=== PATIENT | female | born 1985 | race Caucasian/White ===

== ENCOUNTER → 2016-07-27 | Outpatient (CLI) | payer OTHER ==
[~2016-07-27] MED LIST: PRENAT PO
[2016-07-27 10:12] LABS: AADO2 Arterial 3.6 mmHg (7.0-24.0); Allen Test ACCEPTAB; Arterial Base Excess -0.1 mmol/L (-3.0-3); Arterial COHb 0.3 % (0.0-3.0); Arterial Fraction of Oxyhgb 97.4 % (93.0-99.0); Arterial HCO3 23.3 mmol/L (22.0-26.0); Arterial MetHb 0.3 % (0.0-1.5); Arterial Total Hemglobin 14.4 g/dl (12.0-18.0); MODE ROOM AIR
== END | disposition home or self-care (01) ==
LOC: PUL 09:48
PROVIDERS: ATTEND Internal Medicine Pulmonary Disease
DX: Z01.818 Encounter for other preprocedural examination (principal)
CPT/HCPCS: 36600; 82803

== ENCOUNTER 2016-09-22 11:10 | Emergency (ER) | payer OTHER ==
[~2016-09-22] VITALS: Ht 170.2 cm; Wt 120.0 kg
[2016-09-22 11:11] VITALS: Ht 170.2 cm; Wt 120.0 kg
--- NOTE | 2016-09-22 13:08 | RADRPT ---
PROCEDURE: US Lower extremity Venous. CLINICAL INDICATION: Left leg edema, pain TECHNIQUE: Multiple sonographic images of the left lower extremity deep venous system was obtained utilizing grayscale, color-flow, compressive sonography and doppler imaging with augmentation. The images were reviewed on a PACS workstation. COMPARISON: 10/29/14 FINDINGS: There is normal compressibility and flow within the left common femoral, femoral, posterior tibial, peroneal and popliteal veins. RPTAT: AA IMPRESSION: No sonographic evidence for deep venous thrombosis. .Shane Weiss MD, MD Date Time Electronically viewed and signed by .Shane Weiss MD, on 09/22/2016 13:07 .S/
[2016-09-22] MEDS ORDERED: IBUP-1542 PO (13:24)
--- NOTE | 2016-09-22 13:28 | ERD ---
ER Documentation Chief Complaint Date/Time DATE: 09/22/16 TIME: 13:24 Chief Complaint LEFT LEG PAIN RADIATES TO CALF X 3 MONTHS HPI Patient is a 31-year-old female who presents to the ED with left calf pain 3 months. Patient states that she had left big toe surgery approximately 4 months ago. Patient was put in a cast and immobilized for approximately 2 months. Patient states she had the cast removed on 08-05-16. Patient states that she has left calf pain which is throbbing in nature. Patient states that the pain is worse with ambulating. Patient denies any unilateral leg swelling. Patient denies any fevers, chills, chest pain, shortness of breath, nausea, vomiting, redness, swelling or warmth. Patient denies any recent falls or trauma. Patient was advised to come to the ED by her foot surgeon to rule out any DVT. Patient denies any OCP use, recent travel. ROS All systems reviewed and are negative except as per history of present illness. Medications Home Meds Active Scripts Ibuprofen* (Motrin*) 600 Mg Tab, 600 MG PO Q6, #30 TAB Prov:FREDDY ADDISON PA-C 09/22/16 Reported Medications Multivit/Min/Fol Ac/Iron/Pren* ( S*) 1 Tab Tab, 1 TAB PO DAILY, TAB 10/21/14 Allergies Allergies: Coded Allergies: Penicillins (Unverified Allergy, Unknown, 10/23/14) UNKNOWN REACTION, FROM CHILDHOOD PMhx/Soc Medical and Surgical Hx: pt denies Medical Hx Hx Miscellaneous Medical Probl: Yes (obesity) Hx Alcohol Use: No Hx Substance Use: No Hx Tobacco Use: No Physical Exam Vitals Vital Signs Date Time Temp Pulse Resp B/P Pulse Ox O2 Delivery O2 Flow Rate FiO2 09/22/16 11:11 98.0 89 18 175/70 100 Physical Exam GENERAL: Well-developed, well-nourished female. Appears in no acute distress. HEAD: Normocephalic, atraumatic. EYES: Pupils are equally reactive bilaterally. EOMs grossly intact. No conjunctival erythema. ENT: Moist mucous membranes. No uvula deviation. No kissing tonsils. NECK: Supple. No meningismus. Normal range of motion of the neck. LUNG: Clear to auscultation bilaterally. No rhonchi, wheezing, rales or coarse breath sounds. HEART: Regular rate and rhythm. No murmurs, rubs or gallops. EXTREMITIES: Equal pulses bilaterally. No peripheral clubbing, cyanosis or edema. No unilateral leg swelling. NEUROLOGIC: Alert and oriented. Moving all four extremities without any difficulty. Normal speech. Steady gait. SKIN: Normal color. Warm and dry. No rashes or lesions. LEFT LE: No deformity, warmth, erythema, ecchymosis or swelling. Skin intact. Full range of motion of the knee and ankle. Tender to palpation of the calf. Pain elicited with dorsiflexion of the foot. Sensation intact to light touch. Neurovascularly intact. (Able to plantarflex, dorsiflex, nicole foot, invert foot , raise big toe.) 2+ DP and DT pulses. Procedures/MDM ED COURSE: The patient was stable throughout ED course. I kept the patient and/or family informed of laboratory and diagnostic imaging results throughout the ED course. DIAGNOSTIC IMAGING: Read by radiologist. Patient Name Keya Disla Study Date 09/22/2016 12:45 PM Patient 1985 Accession No. [id number] Referring Physician Freddy Addison Pa-c ([place]) PROCEDURE: US Lower extremity Venous. CLINICAL INDICATION: Left leg edema, pain TECHNIQUE: Multiple sonographic images of the left lower extremity deep venous system was obtained utilizing grayscale, color-flow, compressive sonography and doppler imaging with augmentation. The images were reviewed on a PACS workstation. COMPARISON: 10/29/14 FINDINGS: There is normal compressibility and flow within the left common femoral, femoral , posterior tibial, peroneal and popliteal veins. RPTAT: AA IMPRESSION: No sonographic evidence for deep venous thrombosis. Signed By: Shane Weiss M.d 09/22/2016 1:07:56 PM PROCEDURES: None. MEDICAL DECISION MAKING: This is a 31-year-old female who presents with left calf pain comes 3 months. Patient had a surgical repair of her left big toe approximately 5 months ago. She was referred to the ED for a DVT study. Vital signs were reviewed. Patient was afebrile. Patient was not hypoxic. Patient was not tachycardic. Doppler study of the left lower extremity showed no sonographic evidence of deep venous thrombosis. Given these findings, the patient's presentation is most consistent with left calf pain. I have a much lower clinical concern for dislocation, fracture, cellulitis, abscess, DVT. PRESCRIPTIONS: Ibuprofen DISCHARGE: At this time, patient is stable for discharge and outpatient management. RICE therapy and ROM exercises were advised to avoid stiffness. I have instructed the patient to follow-up with his/her primary care physician in 1-2 days. I have discussed with the patient the possibility of needing to see an field support specialist for further workup and imaging if the pain persists. I have instructed the patient to promptly return to the ER for any new or worsening symptoms including increased pain, swelling, redness, warmth or fever. The patient and/or family expressed understanding of and agreement with this plan. All questions were answered. Home care instructions were provided. Patient's blood pressure was elevated (>120/80) but appears stable without evidence of hypertensive emergency, hypertensive urgency or end-organ failure. I had discussion with the patient about the risks of hypertension. I have advised the patient to follow up with his/her primary care physician for outpatient monitoring and treatment for hypertension in 2-3 days. I have instructed the patient to return to the ER for any new or worsening symptoms including chest pain, shortness of breath, headache, blurred vision, confusion, nausea, vomiting or LOC. Departure Diagnosis: Primary Impression: Calf pain Laterality: left Qualified Code: M79.662 - Pain of left calf Condition: Stable Patient Instructions: Possible Causes of Low Back or Leg Pain Additional Instructions: Call your primary care doctor TOMORROW for an appointment during the next 1-2 days.See the doctor sooner or return here if your condition worsens before your appointment time. FREDDY ADDISON PA-C September 22, 2016 13:28
== END 2016-09-22 13:43 | disposition home or self-care (01) ==
LOC: FTE 11:10
DX: M79.662 Pain in left lower leg (principal); E66.9 Obesity, unspecified; Z68.41 Body mass index [BMI] 40.0-44.9, adult
CPT/HCPCS: 93971; Z7502

== ENCOUNTER 2017-01-14 11:27 | Emergency (ER) | payer OTHER ==
[~2017-01-14] VITALS: Wt 110.0 kg
[~2017-01-14 11:27] MED LIST changes: +IBUP-1542 PO
[2017-01-14] MEDS ORDERED: KETOROLAC 30 MG INJ IM STA (13:12)
--- NOTE | 2017-01-14 13:16 | RADRPT ---
PROCEDURE: Chest xray. CLINICAL INDICATION: Cough, chest pressure. TECHNIQUE: A portable semiupright AP view of the chest was obtained. COMPARISON: None. FINDINGS: The cardiomediastinal silhouette is within normal limits. The lungs are well expanded and show norm al vascularity. No focal opacity, pleural effusion, or pneumothorax is identified. The skeletal st ructures and soft tissues are unremarkable. IMPRESSION: No acute intrathoracic abnormality. RPTAT:PP .Dianelys Jay MD, MD Date Time Electronically viewed and signed by .Dianelys Jay MD, MD on 01/14/2017 13:15 .K/
[2017-01-14] MEDS ORDERED: ALBUTEROL 0.083% (NEB) 2.5 MG/3 ML AMP HHN STA (14:19)
[2017-01-14] MEDS ORDERED: predniSONE 20 MG TAB PO ONE (14:30)
[2017-01-14] MEDS ORDERED: ALBUTEROL 0.5% (NEB) 2.5 MG/0.5 ML AMP INH STA ×2 (14:46→14:47)
--- NOTE | 2017-01-16 14:56 | ERD ---
ER Documentation Chief Complaint Date/Time DATE: 01/16/17 TIME: 14:51 Chief Complaint CHEST CONGESTION X 3 DAYS HPI This is a 31-year-old female presenting to emergency department with cough and chest congestion 3 days. Patient states she has chest tightness that is worse with coughing. No heart palpitations. No wheezing, shortness breath or difficulty breathing. No fevers or chills. ROS All systems reviewed and are negative except as per history of present illness. Medications Home Meds Active Scripts Ibuprofen* (Motrin*) 600 Mg Tab, 600 MG PO Q6, #30 TAB Prov:FREDDY ADDISON PA-C 09/22/16 Reported Medications Multivit/Min/Fol Ac/Iron/Pren* ( S*) 1 Tab Tab, 1 TAB PO DAILY, TAB 10/21/14 Allergies Allergies: Coded Allergies: Penicillins (Unverified Allergy, Unknown, 10/23/14) UNKNOWN REACTION, FROM CHILDHOOD PMhx/Soc Hx Miscellaneous Medical Probl: Yes (obesity) Hx Alcohol Use: No Hx Substance Use: No Hx Tobacco Use: No Smoking Status: Never smoker Physical Exam Vitals Vital Signs Date Time Temp Pulse Resp B/P Pulse Ox O2 Delivery O2 Flow Rate FiO2 01/14/17 14:57 88 18 98 21 01/14/17 14:37 88 19 98 21 01/14/17 11:30 98.0 72 18 141/71 99 Physical Exam Const: alert, no acute distress Head: Atraumatic Eyes: Normal Conjunctiva ENT: Normal External Ears, Nose and Mouth.TMs normal bilaterally. No erythema or exudate posterior pharynx. No peritonsillar abscess. Non-kissing tonsils appear Neck: Full range of motion..~ No meningismus. Resp: Clear to auscultation bilaterally. no wheezing, rhonchi or crackles. No stridor or labored breathing. No intercostal retractions. Cardio: Regular rate and rhythm, no murmurs Abd: Soft, non tender, non distended. Normal bowel sounds Skin: No petechiae or rashes Back: No midline or flank tenderness Ext: No cyanosis, or edema Neur: Awake and alert Psych: Normal Mood and Affect Results 24 hrs Current Medications Medications (Trade) Dose Ordered Sig/Tim Route PRN Reason Start Time Stop Time Status Last Admin Dose Admin Ketorolac Tromethamine (Toradol) 30 mg ONCE STAT IM 01/14/17 13:12 01/14/17 13:14 DC 01/14/17 13:24 Albuterol (Proventil 0.083% (Neb)) 5 mg ONCE STAT HHN 01/14/17 14:19 01/14/17 14:20 DC 01/14/17 14:36 Prednisone (Prednisone) 60 mg ONCE ONCE PO 01/14/17 14:30 01/14/17 14:31 DC 01/14/17 14:27 Albuterol (Proventil 0.5% (Neb)) 5 mg ONCE STAT INH 01/14/17 14:46 01/14/17 14:48 DC Albuterol (Proventil 0.5% (Neb)) 10 mg ONCE STAT INH 01/14/17 14:47 01/14/17 14:48 DC 01/14/17 14:55 Procedures/MDM EKG: As interpreted by myself and Dr. Lou Rate/Rhythm: Normal Sinus RhythmWith sinus arrhythmia and heart rate 97 bpm QRS, ST, T-waves: No changes consistent w/ acute ischemia Impression: No evidence of ischemia or arrhythmia MDM: This is a 31-year-old female presenting to emergency department with cough and chest congestion 3 days. Patient states she has chest wall pain with coughing. Chest x-ray reviewed by radiologist is unremarkable. EKG shows normal sinus rhythm with sinus arrhythmia and heart rate 97 bpm.Patient given 2 albuterol nebulizer treatments, prednisone 60 mg p.o. and Toradol 30 mg IM. Upon reassessment, patient states cough is improved. Patient states she is breathing better. No signs or symptoms of respiratory distress. Oxygen saturation remains 99% on room air. Remains afebrile. Vital signs are stable. Patient appears alert and stable for discharge. Chest wall pain is likely pleuritic. Patient has reproducible chest wall pain with palpation. Likely not from cardiac etiology. Low suspicion for pneumonia, pleural effusion, pneumothorax or acute PR. Differential diagnosis includes but not limited to URI, influenza, otitis media , otitis externa, asthma exacerbation, croup, bronchitis, bronchiolitis and costochondritis. Patient is appropriate for outpatient management and will be given prescription for ibuprofen and prednisone. Instructed patient to follow-up with primary care provider in the next 2-3 days for reassessment and additional management. Return to ED for any high fever, chest pain, difficulty breathing, shortness breath, wheezing, vomiting, diarrhea, abdominal pain or any new or worsening symptoms. Patient verbalizes understanding. All questions answered at discharge. Departure Diagnosis: Primary Impression: URI (upper respiratory infection) URI type: unspecified viral URI Qualified Code: J06.9 - Viral upper respiratory tract infection Condition: Stable Patient Instructions: Uri, Viral, No Abx (Adult) Referrals: [facility] YOU HAVE RECEIVED A MEDICAL SCREENING EXAM AND THE RESULTS INDICATE THAT YOU DO NOT HAVE A CONDITION THAT REQUIRES URGENT TREATMENT IN THE EMERGENCY DEPARTMENT. FURTHER EVALUATION AND TREATMENT OF YOUR CONDITION CAN WAIT UNTIL YOU ARE SEEN IN YOUR DOCTORS OFFICE WITHIN THE NEXT 1-2 DAYS. IT IS YOUR RESPONSIBILITY TO MAKE AN APPOINTMENT FOR FOLOW-UP CARE. IF YOU HAVE A PRIMARY DOCTOR --you should call your primary doctor and schedule an appointment IF YOU DO NOT HAVE A PRIMARY DOCTOR YOU CAN CALL OUR PHYSICIAN REFERRAL HOTLINE AT IF YOU CAN NOT AFFORD TO SEE A PHYSICIAN YOU CAN CHOSE FROM THE FOLLOWING [facility] [address] [facility]. [facility] [address] [facility] [address] [facility] [facility] [address] [facility] [facility] [address] [facility]. [facility]. [address] [facility]. [facility] YOU HAVE RECEIVED A MEDICAL SCREENING EXAM AND THE RESULTS INDICATE THAT YOU DO NOT HAVE A CONDITION THAT REQUIRES URGENT TREATMENT IN THE EMERGENCY DEPARTMENT. FURTHER EVALUATION AND TREATMENT OF YOUR CONDITION CAN WAIT UNTIL YOU ARE SEEN IN YOUR DOCTORS OFFICE WITHIN THE NEXT 1-2 DAYS. IT IS YOUR RESPONSIBILITY TO MAKE AN APPOINTMENT FOR FOLOW-UP CARE. IF YOU HAVE A PRIMARY DOCTOR --you should call your primary doctor and schedule and appointment IF YOU DO NOT HAVE A PRIMARY DOCTOR YOU CAN CALL OUR PHYSICIAN REFERRAL HOTLINE AT . IF YOU CAN NOT AFFORD TO SEE A PHYSICIAN YOU CAN CHOSE FROM THE FOLLOWING [facility] INSTITUTIONS: [facility] [address] [place] [address] [facility] [address] [place] [address] [facility] [address] [place] [address] Additional Instructions: Call your primary care doctor TOMORROW for an appointment during the next 2-3 days.See the doctor sooner or return here if your condition worsens before your appointment time. Return to ED for any high fever, chest pain, difficulty breathing, shortness breath, wheezing, vomiting, diarrhea, abdominal pain or any new or worsening symptoms. HAL KASPER NP Jan 16, 2017 14:56
== END 2017-01-14 16:19 | disposition home or self-care (01) ==
LOC: FTE 11:27
DX: J06.9 Acute upper respiratory infection, unspecified (principal); E66.9 Obesity, unspecified; R07.89 Other chest pain
CPT/HCPCS: 71010; 93005; 94644; 94664; 96372; J1885; J7512; Z7502; Z7610

== ENCOUNTER 2019-02-04 19:48 | Emergency (ER) | payer OTHER ==
[~2019-02-04] VITALS: Ht 170.2 cm; Wt 71.8 kg
[~2019-02-04 19:48] MED LIST changes: +CAPS42.513 TOP; +LIDO700A45 TP
[2019-02-04 19:53] VITALS: BP 136/86; PULSE 94; RESP 24; Ht 170.2 cm; Wt 71.8 kg
== END 2019-02-04 21:59 | disposition home or self-care (01) ==
LOC: FTE 19:48
DX: I83.91 Asymptomatic varicose veins of right lower extremity (principal); G62.9 Polyneuropathy, unspecified
CPT/HCPCS: 99282